=== PATIENT | male | born 1990 | race African-American/Black ===

== ENCOUNTER 2016-03-27 19:34 | Emergency (ER) | payer SELFPAY ==
[~2016-03-27] VITALS: Ht 175.3 cm; Wt 68.0 kg
--- NOTE | 2016-03-27 19:55 | ED EENT ---
History of Present Illness General Chief Complaint: Oral/Throat Problems Stated Complaint: FEVER, SORES IN BACK OF MOUTH Nursing Triage Note: patient reports sore throat x 3 days and fever developed today Source: patient Exam Limitations: no limitations History of Present Illness Time seen by provider: 19:54 Initial Comments To ER with reports of sore throat for 3 days. He's also had a fever up to 102 today. Denies rhinorrhea earache or cough. Does report generalized body aches. Timing/Duration: abrupt Severity: moderate Location: throat Prearrival Treatment: no prearrival treatment Associated Symptoms: No cough, No facial pain/swelling, No nasal congestion/ drainage, poor fluid intake poor solids intake sore throat Allergies and Home Medications Allergies Coded Allergies: No Known Drug Allergies (Unverified , 03/27/16) Home Medications Amoxicillin 500 Mg Capsule #21 500 MG PO TID Prescribed by: JUDSON RADFORD on 03/27/162019 Review of Systems Constitutional: see HPINo chills, No fever Eyes: No Symptoms Reported Ears: No Symptoms Reported Nose: no symptoms reported Mouth: no symptoms reported Throat: see HPI pain Respiratory: no symptoms reported Cardiovascular: no symptoms reported Musculoskeletal: no symptoms reported Skin: no symptoms reported Past Cgwgrgy-Uqrmkc-Idinbo Hx Patient Social History Alcohol Use: Denies Use Recreational Drug Use: No Smoking Status: Never a Smoker Recent Foreign Travel: No Contact w/Someone Who Travel: No Recent Infectious Disease Expo: No Recent Hopitalizations: No Surgeries HX Surgeries: No Respiratory Hx Respiratory Disorders: No Cardiovascular Hx Cardiac Disorders: No Neurological Hx Neurological Disorders: No Reproductive System Hx Reproductive Disorders: No Sexually Transmitted Disease: No Genitourinary Hx Genitourinary Disorders: No Gastrointestinal Hx Gastrointestinal Disorders: No Musculoskeletal Hx Musculoskeletal Disorders: No Endocrine Hx Endocrine Disorders: No HEENT HX ENT Disorders: No Cancer Hx Cancer: No Psychosocial Hx Psychiatric Problems: No Integumentary HX Skin/Integumentary Disorder: No Blood Transfusions Hx Blood Disorders: No Physical Exam Vital Signs Vital Sign - Last 12Hours 03/27/16 19:43 Temp 98.6 Pulse 80 Resp 18 B/P 109/67 Pulse Ox 95 General Appearance: WD/WN no apparent distress Eyes: bilateral eye EOMI, bilateral eye PERRL, bilateral eye normal inspection Ears: bilateral ear TM normal, bilateral ear auricle normal, bilateral ear canal normal Mouth/Throat: other (pharyngeal erythema with exudate on the right tonsil and right side of the pharynx. There is no uvular deviation or peritonsillar abscess.) Neck: non-tender full range of motionNo lymphadenopathy (R), No lymphadenopathy (L) Respiratory: no respiratory distress no accessory muscle use Gastrointestinal: normal bowel sounds non tender soft Neurologic/Psychiatric: alert normal mood/affect oriented x 3 Skin: normal color warm/dry Progress/Results/Core Measures Results/Orders Lab Results Laboratory Tests Test 03/27/16 18:45 03/27/16 19:50 Range/Units Group A Streptococcus Screen NEGATIVE NEGATIVE Band Neutrophils 4 % Basophils # (Auto) 0.0 0.0-0.1 10^3/uL Basophils % (Manual) 1 % Basophils (%) (Auto) 0 0-10 % Blood Morphology Comment NORMAL Eosinophils # (Auto) 0.0 0.0-0.3 10^3/uL Eosinophils % (Manual) 0 % Eosinophils (%) (Auto) 0 0-10 % Hematocrit 43 40-54 % Hemoglobin 14.0 13.3-17.7 G/DL Lymphocytes # (Auto) 1.7 1.0-4.0 X 10^3 Lymphocytes % (Manual) 18 % Lymphocytes (%) (Auto) 16 12-44 % Mean Corpuscular Hemoglobin 27 25-34 PG Mean Corpuscular Hemoglobin Concent 33 32-36 G/DL Mean Corpuscular Volume 84 80-99 FL Mean Platelet Volume 11.1 H 7.4-10.4 FL Monocytes # (Auto) 1.9 H 0.0-1.0 X 10^3 Monocytes % (Manual) 19 % Monocytes (%) (Auto) 19 H 0-12 % Monoscreen NEGATIVE NEGATIVE Neutrophils # (Auto) 6.6 1.8-7.8 X 10^3 Neutrophils % (Manual) 58 % Neutrophils (%) (Auto) 64 42-75 % Platelet Count 167 130-400 10^3/uL Red Blood Count 5.12 4.35-5.85 10^6/uL Red Cell Distribution Width 14.9 H 10.0-14.5 % White Blood Count 10.2 4.3-11.0 10^3/uL Micro Results Microbiology 03/27/16 Influenza Types A,B Antigen (YAIMA) - Final, Complete My Orders Orders-JUDSON RADFORD AUTO MECHANIC SUPERVISOR Cbc With Automated Diff (03/27/16 19:49) Monotest (03/27/16 19:49) Rapid Strep A Screen (03/27/16 19:49) Influenza A And B Antigens (03/27/16 19:49) Saline Lock/Iv-Start (03/27/16 19:49) Ketorolac Injection (Toradol Injection) (03/27/16 20:00) Ns Iv 1000 Ml (Sodium Chloride 0.9%) (03/27/16 20:00) Manual Differential (03/27/16 19:50) Amoxicillin Capsule (Polymox Capsule) (03/27/16 20:20) Dexamethasone Pf Injection (Decadron Pf (03/27/16 20:30) Medications Given in ED Current Medications Medications Dose Ordered Sig/Kandice Route Start Time Stop Time Status Last Admin Dose Admin Dexamethasone Sodium Phosphate 10 mg ONCE ONCE IV 03/27/16 20:30 03/27/16 20:31 DC 03/27/16 20:26 10 MG Ketorolac Tromethamine 30 mg ONCE ONCE IVP 03/27/16 20:00 03/27/16 20:01 DC 03/27/16 19:56 30 MG Vital Signs/I&O Vital Sign - Last 12Hours 03/27/16 19:43 Temp 98.6 Pulse 80 Resp 18 B/P 109/67 Pulse Ox 95 Blood Pressure Mean: 81 Departure Impression Impression: Primary Impression: Pharyngitis Disposition: 01 HOME, SELF-CARE Condition: Stable Departure-Patient Inst. Decision time for Depature: 20:19 Referrals: NO,LOCAL PHYSICIAN (PCP/Family) Primary Care Physician Patient Instructions: Sore Throat in Adults Add. Discharge Instructions: 1. Use Tylenol and Motrin for pain 2. Plenty of fluids 3. See your doctor 4. Antibiotics as directed All discharge instructions reviewed with patient and/or family. Voiced understanding. Scripts Amoxicillin 500 Mg [id number] Mg PO TID #21 CAP Prov:JUDSON RADFORD AUTO MECHANIC SUPERVISOR 03/27/16 JUDSON RADFORD AUTO MECHANIC SUPERVISOR Mar 27, 2016 19:55
[2016-03-27 19:57] LABS: BASOPHILS % (AUTO) 0 % (0-10); EOSINOPHILS % (AUTO) 0 % (0-10); LYMPHOCYTES # (AUTO) 1.7 X 10^3 (1.0-4.0); LYMPHOCYTES % (AUTO) 16 % (12-44); MEAN CORPUSCULAR HEMOGLOBIN 27 PG (25-34); MEAN CORPUSCULAR HGB CONC 33 G/DL (32-36); MEAN CORPUSCULAR VOLUME 84 FL (80-99); MEAN PLATELET VOLUME 11.1 FL (7.4-10.4); MONOCYTES # (AUTO) 1.9 X 10^3 (0.0-1.0); MONOCYTES % (AUTO) 19 % (0-12); NEUTROPHILS # (AUTO) 6.6 X 10^3 (1.8-7.8); NEUTROPHILS % (AUTO) 64 % (42-75); PLATELET COUNT 167 10^3/uL (130-400); RED BLOOD COUNT 5.12 10^6/uL (4.35-5.85); RED CELL DISTRIBUTION WIDTH 14.9 % (10.0-14.5); WHITE BLOOD COUNT 10.2 10^3/uL (4.3-11.0)
[2016-03-27] MEDS ORDERED: KETOROLAC 30 MG/ML VIAL IVP ONE (20:00)
[2016-03-27] MEDS ORDERED: NS IV 1000 ML 1,000 ML IV SCH (20:00)
[2016-03-27 20:14] LABS: BAND NEUTROPHILS 4 %; BASOPHILS % (MANUAL) 1 %; EOSINOPHILS % (MANUAL) 0 %; LYMPHOCYTES % (MANUAL) 18 %; NEUTROPHILS % (MANUAL) 58 %
[2016-03-27] MEDS ORDERED: AMOXICILLIN 500 MG (POLYMOX) CAP PO STA (20:20)
[2016-03-27] MEDS ORDERED: AMOX500C2 PO (20:20)
[2016-03-27] MEDS ORDERED: DEXAMETHASONE PF 10 MG/ML (DECADRON) VIAL IV ONE (20:30)
[2016-03-27 20:44] VITALS: BP 126/73
== END 2016-03-27 20:44 | disposition home or self-care (01) ==
LOC: ER 19:38
DX: J02.9 Acute pharyngitis, unspecified (principal)
CPT/HCPCS: 36415; 85007; 85027; 86308; 87430; 87804; 96374; 96375

== ENCOUNTER 2017-07-18 03:11 | Emergency (ER) | payer SELFPAY ==
[~2017-07-18] VITALS: Ht 177.8 cm; Wt 74.8 kg
[~2017-07-18 03:11] MED LIST: AMOX500C2 PO
[2017-07-18] MEDS ORDERED: RX-TRAMADOL 50 MG (ULTRAM) TAB PPK#4 PO STA (03:22)
[2017-07-18] MEDS ORDERED: NAPR-915 PO (03:26)
[2017-07-18] MEDS ORDERED: TRAM-42 PO (03:26)
[2017-07-18] MEDS ORDERED: LIDO15SO2 MM (03:26)
[2017-07-18] MEDS ORDERED: AMOX-358 PO (03:26)
--- NOTE | 2017-07-18 03:26 | ED EENT ---
History of Present Illness General Chief Complaint: Dental Problems/Pain Stated Complaint: TOOTH PAIN Source: patient Exam Limitations: no limitations History of Present Illness Date Seen by Provider: Jul 18, 2017 Time Seen by Provider: 03:16 Initial Comments PT ARRIVES VIA POV C/O SEVERE DENTAL PAIN HAS BEEN GOING ON FOR 2 WEEKS, BUT TONIGHT HAS BEEN SEVERE AND HE CAN'T SLEEP DUE TO PAIN PT HAS PARTIALLY ERUPTED WISDOM TEETH ON LEFT UPPER AND LOWER SIDE. NO PROBLEMS WITH RIGHT SIDE. NO FEVER PT IS [employer] STUDENT FROM [employer] [facility] [facility]. Allergies and Home Medications Allergies Coded Allergies: No Known Drug Allergies (Unverified , 03/27/16) Home Medications Amoxicillin 500 Mg Capsule, 500 MG PO TID Prescribed by: JUDSON RADFORD on 03/27/162019 Amoxicillin/Potassium Clav 1 Each Tablet, 1 EACH PO BID Prescribed by: VIOLETA ROMANO on 07/18/17325 Lidocaine HCl 15 Ml Solution, 15 ML MM Q 1-2 HOURS Prescribed by: VIOLETA ROMANO on 07/18/17325 Naproxen 500 Mg Tablet, 500 MG PO BID Prescribed by: VIOLETA ROMANO on 07/18/17325 Tramadol HCl 50 Mg Tablet, 50 MG PO Q4H Prescribed by: VIOLETA ROMANO on 07/18/17325 Patient Home Medication List Home Medication List Reviewed: Yes Review of Systems Constitutional: no symptoms reported Mouth: see HPI, pain Musculoskeletal: no symptoms reported Skin: no symptoms reported Neurological: No Symptoms Reported Past Ubcpapr-Zzgmgk-Rpmvjt Hx Patient Social History Alcohol Use: Occasionally Uses Recreational Drug Use: No Smoking Status: Never a Smoker Recent Foreign Travel: No Contact w/Someone Who Travel: No Recent Hopitalizations: No Physical Abuse: No Sexual Abuse: No Mistreated: No Fear: No Past Medical History Surgeries: No Respiratory: No Cardiac: No Neurological: No Reproductive Disorders: No Sexually Transmitted Disease: No Gastrointestinal: No Musculoskeletal: No Endocrine: No HEENT: No Cancer: No Psychosocial: No Nursing Suicide Risk Score: 0 Integumentary: No Blood Disorders: No Physical Exam Vital Signs Vital Signs - First Documented 07/18/17 03:16 Temp 97.0 Pulse 100 Resp 20 B/P (MAP) 122/88 (99) Pulse Ox 99 O2 Delivery Room Air General Appearance: WD/WN, no apparent distress Mouth/Throat: No excessive drooling; other (PARTIALLY ERUPTED AND IMPACTED LEFT UPPER AND LOWER 3RD MOLARS. MODERATE SURROUNDING GUM SWELLING AND ERYTHEMA. NO DRAINAGE. NO SWELLING TO FACE ) Neurologic/Psychiatric: buyers' agent II-XII nml as tested, no motor/sensory deficits, alert, normal mood/affect, oriented x 3 Skin: normal color, warm/dry Progress/Results/Core Measures Results/Orders My Orders Orders - JUAN ANTONIOMAMIA K DO Amoxicillin/Clavulanate Tablet (Augmenti (07/18/17 03:30) Lidocaine 2% Viscous 15 Ml (Xylocaine Vi (07/18/17 03:30) Ibuprofen Tablet (Motrin Tablet) (07/18/17 03:30) Rx-Tramadol Hcl (Rx-Ultram) (07/18/17 03:22) Vital Signs/I&O 07/18/17 03:16 Temp 97.0 Pulse 100 Resp 20 B/P (MAP) 122/88 (99) Pulse Ox 99 O2 Delivery Room Air Departure Impression Primary Impression: IMPACTED WISDOM TEETH Disposition: HOME, SELF-CARE Condition: Stable Departure-Patient Inst. Referrals: ANA LAURA CONNELL DDS NO,LOCAL PHYSICIAN (PCP) Primary Care Physician LITZY COLINDRES MD Patient Instructions: Dental Pain (DC), Impacted Tooth (DC) Add. Discharge Instructions: FREQUENT SALT WATER SWISHES SOFT FOODS--AVOID FOODS THAT REQUIRE CHEWING FOLLOW UP WITH DR. CONNELL OR DENTIST/MAXILLOFACIAL SURGEON OF CHOICE NEXT WEEK FOR FURTHER CARE. All discharge instructions reviewed with patient and/or family. Voiced understanding. Scripts Tramadol HCl (Ultram) 50 Mg Tablet 50 MG PO Q4H, #20 TAB Prov: VIOLETA ROMANO DO 07/18/17 Naproxen (Naproxen) 500 Mg Tablet 500 MG PO BID, #20 TAB Prov: VIOLETA ROMANO K DO 07/18/17 Lidocaine HCl (Lidocaine HCl Viscous) 15 Ml Solution 15 ML MM Q 1-2 HOURS for Pain, #100 ML Prov: VIOLETA ROMANO DO 07/18/17 Amoxicillin/Potassium Clav (Augmentin 875-125 Tablet) 1 Each Tablet 1 EACH PO BID for INFECTION, #20 TAB Prov: MAMI ROMANOA K DO 07/18/17 VIOLETA ROMANO DO Jul 18, 2017 03:26
[2017-07-18] MEDS ORDERED: LIDOCAINE 2% VISCOUS 15 ML UDC MM ONE (03:30)
[2017-07-18] MEDS ORDERED: AUGMENTIN 875 MG TAB (AMOXICILLIN/CLAVULANATE) PO SCH (03:30)
[2017-07-18] MEDS ORDERED: IBUPROFEN 800 MG (MOTRIN) TAB PO ONE (03:30)
[2017-07-18 03:34] VITALS: BP 0/0
== END 2017-07-18 03:34 | disposition home or self-care (01) ==
LOC: EDUNIT# 03:11 → ER 03:14
DX: K01.1 Impacted teeth (principal)
CPT/HCPCS: 99283

== ENCOUNTER 2018-04-10 18:44 | Emergency (ER) | payer OTHER ==
[~2018-04-10] VITALS: Ht 177.8 cm; Wt 77.1 kg
[~2018-04-10 18:44] MED LIST changes: +AMOX-358 PO; +LIDO15SO2 MM; +NAPR-915 PO; +TRAM-42 PO
[2018-04-10] MEDS ORDERED: METH4TAB PO (19:42)
--- NOTE | 2018-04-10 19:43 | ED Integumentary General ---
General Chief Complaint: Allergic Reaction Stated Complaint: RASH Nursing Triage Note: PATIENT STATES THAT RASH OVER HANDS, ABD, BACK, NECK, THIGHS, AND BILAT UPPER EXTREM. BEGAN ABOUT A WEEK AGO. HE HAS NOT SEEN HIS PHYSICIAN OR ANY OTHER PROVIDER ABOUT IT. HE HAS NOT TAKEN BENADRYL, BUT HE HAS PUT HYDROCODONE CREAM ON IT. Source: patient Exam Limitations: no limitations History of Present Illness Date Seen by Provider: Apr 10, 2018 Time Seen by Provider: 19:40 Initial Comments To ER with a diffuse bumpy rash to his neck and torso legs and arms, not on his face not on the palms. It is not itchy. He tried taking hydrocortisone cream without relief. This began after recovering from a febrile illness associated with sore throat and body aches and nausea. He denies any current symptoms other than the presence of a rash Timing/Duration: constant Severity: moderate Location: torso Possible Cause: no cause identified Allergies and Home Medications Allergies Coded Allergies: No Known Drug Allergies (Unverified , 03/27/16) Home Medications Amoxicillin 500 Mg Capsule, 500 MG PO TID Prescribed by: JUDSON RADFORD on 03/27/162019 Amoxicillin/Potassium Clav 1 Each Tablet, 1 EACH PO BID Prescribed by: VIOLETA ROMANO on 07/18/17325 Lidocaine HCl 15 Ml Solution, 15 ML MM Q 1-2 HOURS Prescribed by: VIOLETA ROMANO on 07/18/17325 Naproxen 500 Mg Tablet, 500 MG PO BID Prescribed by: VIOLETA ROMANO on 07/18/17325 Tramadol HCl 50 Mg Tablet, 50 MG PO Q4H Prescribed by: VIOLETA ROMANO on 07/18/17325 Patient Home Medication List Home Medication List Reviewed: Yes Review of Systems Review of Systems Constitutional: see HPI EENTM: see HPI Respiratory: no symptoms reported Cardiovascular: no symptoms reported Genitourinary: no symptoms reported Musculoskeletal: no symptoms reported Skin: no symptoms reported Psychiatric/Neurological: No Symptoms Reported Endocrine: No Symptoms Reported Past Bdbsbyr-Nmlajb-Llbquc Hx Patient Social History Alcohol Use: Occasionally Uses Recreational Drug Use: No 2nd Hand Smoke Exposure: No Recent Foreign Travel: No Contact w/Someone Who Travel: No Recent Infectious Disease Expo: No Recent Hopitalizations: No Past Medical History Surgeries: No Respiratory: No Cardiac: No Neurological: No Reproductive Disorders: No Sexually Transmitted Disease: No Gastrointestinal: No Musculoskeletal: No Endocrine: No HEENT: No Cancer: No Psychosocial: No Integumentary: Yes (SHINGLES) Blood Disorders: No Physical Exam Vital Signs Vital Signs - First Documented 04/10/18 19:15 Temp 98.6 Pulse 72 Resp 18 B/P (MAP) 168/72 (104) Pulse Ox 97 O2 Delivery Room Air Capillary Refill : Less Than 3 Seconds General Appearance: WD/WN, no apparent distress HEENT: PERRL/EOMI, normal ENT inspection Neck: non-tender, full range of motion Respiratory: no respiratory distress, no accessory muscle use Neurologic/Psychiatric: alert, normal mood/affect, oriented x 3 Skin: normal color, other (raised papular rash) Progress/Results/Core Measures Results/Orders Vital Signs/I&O 04/10/18 19:15 Temp 98.6 Pulse 72 Resp 18 B/P (MAP) 168/72 (104) Pulse Ox 97 O2 Delivery Room Air Blood Pressure Mean: 104 Departure Impression Primary Impression: Viral exanthem Disposition: 01 HOME, SELF-CARE Condition: Stable Departure-Patient Inst. Decision time for Depature: 19:42 Referrals: NO,LOCAL PHYSICIAN (PCP/Family) Primary Care Physician Patient Instructions: Viral Exanthem (DC) Add. Discharge Instructions: 1. Return to ER for any body aches, sore throat joint pains or other concerns. Follow-up with [employer] student [facility] later this week. All discharge instructions reviewed with patient and/or family. Voiced understanding. Scripts Methylprednisolone (Medrol) 4 Mg Tab.ds.pk 4 MG PO UD, #1 PKG Prov: JUDSON RADFORD ARTIFICIAL LEATHER CALENDER OPERATOR 04/10/18 JUDSON RADFORD APRN Apr 10, 2018 19:43
[2018-04-10] MEDS ORDERED: predniSONE 20 MG TAB PO ONE (19:45)
[2018-04-10 20:00] VITALS: BP 158/68
== END 2018-04-10 20:00 | disposition home or self-care (01) ==
LOC: EDUNIT# 18:44 → ER 18:46
DX: B08.8 Other specified viral infections characterized by skin and mucous membrane lesions (principal); Z86.19 Personal history of other infectious and parasitic diseases
CPT/HCPCS: 99283